=== PATIENT | male | born 1985 | race Caucasian/White ===

== ENCOUNTER 2021-04-16 12:45 | Emergency (ER) | payer OTHER, BC, SELFPAY ==
--- NOTE | ~2021-04-16 | XR_ITS ---
EXAMINATION: XR finger 3rd LT min 2V EXAM DATE: 04/16/2021 13:24 INDICATION: Crush injury, laceration. TECHNIQUE: Left 3rd finger frontal, lateral and oblique projections obtained and reviewed. There i s no prior study for comparison. FINDINGS: There are no acute left 3rd finger fractures or dislocations identified. There is no subcu taneous gas. There is soft tissue swelling over the finger. There are no radiopaque foreign bodies. IMPRESSION: 1. Left 3rd finger exam without acute osseous findings. 2. Soft tissue swelling. Reviewed, dictated and finalized at location A. TEACHER
[2021-04-16 13:01] VITALS: BP 166/91; PULSE 61; RESP 18; TEMP 36.8; O2SAT 100
--- NOTE | 2021-04-16 14:19 | ED.SKABFB ---
HPI - Skin/Abscess/Foreign Bdy General Chief complaint: Skin/Abscess/Foreign Body Stated complaint: finger injury Time Seen by Provider: 04/16/21 13:09 Source: patient Mode of arrival: ambulatory Limitations: no limitations History of Present Illness HPI narrative: This is a 35 year old male that presents to the ER for laceration to the left third finger sustained just prior to arrival. Reports he was using a piece of machinery at work and his finger got caught in a pinch point. Reports the machine was immediately released. Reports lacerations and pain to the area. He is not up-to-date on tetanus. Denies decreased ROM or numbness. Related Data Allergies Allergy/AdvReac Type Severity Reaction Status Date / Time No Known Allergies Allergy Verified 04/16/21 13:22 Review of Systems Review of Systems: CONSTITUTIONAL: Denies fever SKIN: Reports laceration MUSCULOSKELETAL: Denies joint pain, or myalgia. NEUROLOGIC: Denies numbness All systems reviewed & are unremarkable except as noted in HPI and below PMFSH Past Medical History Medical History (Updated 04/16/21 @ 15:37 by Charmaine Steiner PA-C) No active medical problems Social History Social History (Updated 04/16/21 @ 14:22 by Charmaine Steiner PA-C) Substance use: never Exam Narrative: GENERAL: Well-appearing, well-nourished, and in no acute distress. HEAD: Normocephalic, atraumatic. EYES: EOMI. EXTREMITIES: Normal range of motion. No edema or obvious deformity. Normal radial pulses. Normal sensation. Left third finger dorsal surface with 1 cm linear laceration into subcutaneous tissue. Palmar surface of left third finger with 2 cm linear laceration into subcutaneous tissue SKIN: Warm, dry, no rash. NEURO: No focal deficits. Alert and oriented x3. PSYCH: Normal mood and affect Course Vital Signs Vital signs: Vital Signs Temperature 98.3 F 04/16/21 13:01 Pulse Rate 61 04/16/21 13:01 Respiratory Rate 18 04/16/21 13:01 Blood Pressure 166/91 H 04/16/21 13:01 Pulse Oximetry 100 04/16/21 13:01 Temperature 98.3 F 04/16/21 13:01 Pulse Rate 61 04/16/21 13:01 Respiratory Rate 18 04/16/21 13:01 Blood Pressure 166/91 H 04/16/21 13:01 Pulse Oximetry 100 04/16/21 13:01 Procedures Laceration Laceration 1: Date: 04/16/21 Time: 15:39 Site: hand Side (If applicable): left Size (cm): 2 Description: linear Depth: simple, single layer Local Anesthetic: lidocaine 1% Amount of anesthesia used (mL): 3 Pre-repair: wound explored (Flexor tendon is intact) and irrigated ====== Skin Level ====== Skin layer closed with: nylon Size (cm): 4-0 Number of sutures: 5 Technique: simple, interrupted ====== Subcutaneous Layer ====== ====== Muscle Layer ====== ====== Tendon Layer ====== Laceration 2: Date: 04/16/21 Time: 15:40 Site: hand Side (If applicable): left Size (cm): 1 Description: linear Depth: simple, single layer Local Anesthetic: lidocaine 1% Amount of anesthesia used (mL): 3 Pre-repair: wound explored and irrigated ====== Skin Level ====== Skin layer closed with: nylon Size (cm): 4-0 Number of sutures: 2 Technique: simple, interrupted ====== Subcutaneous Layer ====== ====== Muscle Layer ====== ====== Tendon Layer ====== MDM - Skin/Abscess/Foreign Bdy MDM Narrative Medical decision making narrative: Patient presents the emergency department for lacerations to the left third finger sustained just prior to arrival. Patient's wounds were irrigated and closed with sutures. Left third finger x-ray is without acute osseous abnormalities. Patient is neurovascularly intact. Tendons are intact in the finger. Patient was educated on wound care. He is to follow-up with primary care doctor. He was given warnings
[2021-04-16] MEDS: TETANUS,DIPHTHERIA,AC PERTUSSIS ADULT (0.5 ML) BOOSTRIX IM (15:24)
[2021-04-16 16:00] VITALS: BP 166/91; PULSE 82; RESP 16; O2SAT 100
== END 2021-04-16 16:18 | disposition home or self-care (01) ==
PROVIDERS: Emergency Provider Emergency Medicine
DX: S61.213A Laceration without foreign body of left middle finger without damage to nail, initial encounter (principal); Z23 Encounter for immunization; W31.9XXA Contact with unspecified machinery, initial encounter
CPT/HCPCS: 12002; 73140; 90471; 90715; 99283

== ENCOUNTER 2022-08-31 14:17 | Emergency (ER) | payer OTHER, SELFPAY ==
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
[2022-08-31 14:43] VITALS: BP 148/77; PULSE 65; RESP 18; TEMP 36.4; O2SAT 100
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
== END 2022-08-31 16:45 | disposition home or self-care (01) ==
PROVIDERS: Emergency Provider Family Medicine
DX: S42.022A Displaced fracture of shaft of left clavicle, initial encounter for closed fracture (principal); V18.0XXA Pedal cycle driver injured in noncollision transport accident in nontraffic accident, initial encounter
CPT/HCPCS: 73000; 99284; A4565

== ENCOUNTER 2022-09-10 01:29 | Day surgery (SDC) | payer OTHER, SELFPAY ==
[2022-09-03 10:48] VITALS: BMI 27.1
--- NOTE | 2022-09-03 10:54 | PC.NURSE ---
Report to the Outpatient Waiting Room, entrance under the green pavilion located off [facility], at time 0800 on date 09/10/22. Planned Procedure Time: 1000. Time changes happen often and if your time is changed the preop area will call you the afternoon before. - You and your visitor will be asked to self-screen and do not enter if you have any COVID symptoms. - A mask is optional within the hospital at this time. Patients may have clear liquids (water, carbonated beverages, clear teas, apple juice) until 3 hours prior to surgery with a maximum of 20 ounces. - No food from midnight until time of surgery Take the following medications with a SIP of water the morning of surgery: N/A DO NOT STOP ANY OF YOUR OTHER PRESCRIPTION MEDICATIONS PRIOR TO SURGERY EXCEPT THE FOLLOWING Medications to discontinue per physician: N/A Date to take last dose: N/A Please no make-up, nail sinhala, hairspray, perfume, deodorant, or body powder the day of surgery. No jewelry (including any body piercings) or valuables the day of surgery, leave them at home. Please take a shower or bath the night before, or the morning of, surgery with an antibacterial soap. Wear comfortable, loose fitting clothing. - Jewelry must be removed prior to entering the operating room. Rings and piercings that are not removed may be cut off. - The hospital will not accept responsibility for valuables. - Please leave all valuables, including medications, at home the day of surgery. If you are going home after surgery, a licensed steam train driver must drive you home. - NO public transportation without another adult if you receive anesthesia. - We recommend that an adult stay with you for 24 hours following discharge. - We also recommend that you do not drive, make important decision, drink alcoholic beverages, or take any drugs that were not prescribed by your health care provider for at least 24 hours after your discharge time. Follow any additional instructions given to you from your surgeon. If you or anyone in your household have experienced Covid symptoms in the past week, please notify your surgeon or the nurse liaison at the phone number below for possible testing. Telephone instructions given to OSVALDO FALL and asked if any additional questions and then verbalized understanding. Patient advised to call surgeon office or pre surgery nurse liaison [phone] if any additional questions.
[2022-09-10] VITALS (8 sets, daily range): BP systolic 113–134; BP diastolic 56–72; PULSE 50–74; RESP 12–20; TEMP 36.3–36.5; O2SAT 98–100
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
--- NOTE | 2022-09-10 07:05 | WPDHPUPDATE1 ---
History and Physical Update Update Date/Time: 09/10/22 07:05 History and Physical has been reviewed, including an updated exam of the patient. There are NO changes in the patient's condition. Risks, benefits, and alternatives have been discussed and questions answered. Patient agrees to proceed with procedure.
[2022-09-10] MEDS: ACETAMINOPHEN 500 MG TABLET 1000 MG PO (08:15)
[2022-09-10] MEDS: KETOROLAC 15 MG/ML VIAL (*BKC) IV PUSH (08:39)
--- NOTE | 2022-09-10 08:41 | P.PNAN_ITS ---
Anes - Initial Pre Proc Eval Procedure: Operation Date: 09/10/22 10:00 Proposed Procedures p Open Reduction Internal Fixation Left Clavicle - Caleb Dickerson MD Date/Time: 09/10/22 08:41 Surgeon: Caleb Dickerson MD Pre Op Diagnosis: Lt Clavicle Fx Patient Data Age: 37 Gender: M Height: 1.8 m Weight: 87.6 kg Allergies Allergy/AdvReac Type Severity Reaction Status Date / Time No Known Allergies Allergy Verified 09/10/22 08:13 Home Medications Medication Instructions Recorded Confirmed Type No Home Medications 09/03/22 09/03/22 History Patient hx anesthesia problems: none Family hx anesthesia problems: none Results Review: All pre-operative results and documents have been reviewed as part of the pre- operative evaluation. COUNT INCLUDES THE [facility] Past Medical History Medical History No active medical problems Social History Social History Smoking packs per day: 0.75 Smoking cigarettes per day: 15.0 Years smoked: 6 Smoking pack-years: 4.50 Smoking status: Former smoker Tobacco type: cigarettes Smoking end date: 05/24/14 Alcohol intake: never Substance use: never Substance use type: does not use Living arrangements: with family Spiritual care concerns: No Anes - Eval Final PreProcedure Day of Procedure 09/10/22 08:41 Patient weight: overweight Heart: regular rate and rhythm Lungs: clear to auscultation Airway: Mallampati scale class II Neurological: alert and oriented Last oral intake: >/= 8 hours ASA classification: II Emergent: no Anesthetic plan: proceed Anesthesia type and monitoring: general ETT and standard monitoring Results Review: All pre-operative results and documents have been reviewed as part of the pre- operative evaluation. Informed Consent: The patient's anesthetic plan and its attendant risks and benefits were discussed with the patient/family/POA. Questions were solicited and answers provided to the satisfaction of the patient/family/POA.
[2022-09-10] MEDS: LACTATED RINGERS 1,000 ML 30 ML IV CONT ×2 (09:22→12:27)
[2022-09-10] MEDS: ceFAZolin 2 GM/D5W 50 ML 2 GM/50 ML BAG IVPB (10:27)
[2022-09-10] MEDS: BUPIVACAINE/EPINEPHRINE 0.5% 50 ML VIAL 20 ML INFILTRATE (12:18)
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
== END 2022-09-10 14:37 | disposition home or self-care (01) ==
PROVIDERS: Visit Provider Orthopaedic Surgery
PROC: (CPT 23515; principal; 2022-09-10 10:00)
DX: S42.022A Displaced fracture of shaft of left clavicle, initial encounter for closed fracture (principal); V18.4XXA Pedal cycle driver injured in noncollision transport accident in traffic accident, initial encounter; Z87.891 Personal history of nicotine dependence
CPT/HCPCS: 23515; 99199; A9270; C1713; J0690; J1100; J1170; J1885; J2250; J2405; J2704; J3010; J7120

== ENCOUNTER → 2022-10-29 00:46 | Day surgery (SDC) | payer OTHER, SELFPAY ==
[2022-10-26 11:04] VITALS: BMI 26.9
--- NOTE | 2022-10-26 11:05 | PC.NURSE ---
Report to the Outpatient Waiting Room, entrance under the green pavilion located off [facility], at time 1000 on date 10/29/22. Planned Procedure Time: 1200. Time changes happen often and if your time is changed the preop area will call you the afternoon before. - You and your visitor will be asked to self-screen and do not enter if you have any COVID symptoms. - A mask is optional within the hospital at this time. Patients may have clear liquids (water, carbonated beverages, clear teas, apple juice) until 3 hours prior to surgery with a maximum of 20 ounces. - No food from midnight until time of surgery Take the following medications with a SIP of water the morning of surgery: NONE DO NOT STOP ANY OF YOUR OTHER PRESCRIPTION MEDICATIONS PRIOR TO SURGERY ?EXCEPT THE FOLLOWING Medications to discontinue per physician: NAPROXEN Date to take last dose: NO MORE UNTIL AFTER SURGERY Please no make-up, nail pakistani, hairspray, perfume, deodorant, or body powder the day of surgery. No jewelry (including any body piercings) or valuables the day of surgery, leave them at home. Please take a shower or bath the night before, or the morning of, surgery with an antibacterial soap. Wear comfortable, loose fitting clothing. - Jewelry must be removed prior to entering the operating room. Rings and piercings that are not removed may be cut off. - The hospital will not accept responsibility for valuables. - Please leave all valuables, including medications, at home the day of surgery. If you are going home after surgery, a licensed goat driver must drive you home. - NO public transportation without another adult if you receive anesthesia. - We recommend that an adult stay with you for 24 hours following discharge. - We also recommend that you do not drive, make important decision, drink alcoholic beverages, or take any drugs that were not prescribed by your health care provider for at least 24 hours after your discharge time. Follow any additional instructions given to you from your surgeon. If you or anyone in your household have experienced Covid symptoms in the past week, please notify your surgeon or the nurse liaison at the phone number below for possible testing. Telephone instructions given to OSVALDO FALL and asked if any additional questions and then verbalized understanding. Patient advised to call surgeon office or pre surgery nurse liaison [phone] if any additional questions.
[2022-10-29] VITALS (10 sets, daily range): BP systolic 115–141; BP diastolic 56–87; PULSE 45–65; RESP 10–16; TEMP 36.1–36.2; O2SAT 97–100
--- NOTE | ~2022-10-29 | XR_ITS ---
EXAMINATION: XR surgery orthopedic DATE: 10/29/2022 14:29 INDICATION: Left clavicle fracture. TECHNIQUE: 2 intraoperative fluoroscopic views of the chest were obtained. I was not present. Fluoros copy exposure time was 6 seconds. COMPARISON: Left clavicle radiograph 10/23/2022 FINDINGS: There is a transverse fracture involving middle third of left clavicle in near-anatomic ali gnment. There is internal fixation of left clavicle with 2 plates with screws. IMPRESSION: 1. Left clavicle fracture status post open reduction internal fixation. Reviewed, dictated and finalized at location A.
--- NOTE | 2022-10-29 08:38 | WPDHPUPDATE1 ---
History and Physical Update Update Date/Time: 10/29/22 08:38 History and Physical has been reviewed, including an updated exam of the patient. There are NO changes in the patient's condition. Risks, benefits, and alternatives have been discussed and questions answered. Patient agrees to proceed with procedure.
--- NOTE | 2022-10-29 10:56 | SUR.PREOP ---
pt states has incentive spirometer from previous procedure and knows how to use
[2022-10-29] MEDS: ACETAMINOPHEN 500 MG TABLET 1000 MG PO (11:04)
[2022-10-29] MEDS: LACTATED RINGERS 1,000 ML 30 ML IV CONT ×2 (11:21→14:51)
[2022-10-29] MEDS: KETOROLAC 15 MG/ML VIAL (*BKC) IV PUSH (11:24)
--- NOTE | 2022-10-29 12:25 | P.PNAN_ITS ---
Anes - Initial Pre Proc Eval Procedure: Operation Date: 10/29/22 12:00 Proposed Procedures p Open Reduction Internal Fixation of Left Clavicle Fracture - Caleb Dickerson MD Date/Time: 10/29/22 12:25 Surgeon: Caleb Dickerson MD Pre Op Diagnosis: left clavicle fracture Patient Data Age: 37 Gender: M Height: 1.8 m Weight: 86.8 kg Last Vital Signs Temp 36.2 C L 10/29/22 10:57 Pulse 65 10/29/22 10:57 Resp 16 10/29/22 10:57 BP 132/75 10/29/22 10:57 Pulse Ox 100 10/29/22 10:57 O2 Del Method Room Air 10/29/22 10:57 Allergies Allergy/AdvReac Type Severity Reaction Status Date / Time No Known Allergies Allergy Verified 10/29/22 11:00 Home Medications Medication Instructions Recorded Confirmed Type naproxen 500 mg tablet 500 mg PO BID 10/26/22 10/29/22 History Patient hx anesthesia problems: none Family hx anesthesia problems: none Results Review: All pre-operative results and documents have been reviewed as part of the pre- operative evaluation. [facility] Past Medical History Medical History Encounter for postoperative care No active medical problems Painful orthopaedic hardware Social History Social History Smoking packs per day: 0.75 Smoking cigarettes per day: 15.0 Years smoked: 6 Smoking pack-years: 4.50 Smoking status: Former smoker Tobacco type: cigarettes Smoking end date: 05/24/14 Alcohol intake: never Substance use: never Substance use type: does not use Living arrangements: with family Spiritual care concerns: No Anes - Eval Final PreProcedure Day of Procedure 10/29/22 12:25 Patient weight: overweight Heart: regular rate and rhythm Lungs: clear to auscultation Airway: Mallampati scale class II Neurological: alert and oriented Last oral intake: >/= 8 hours ASA classification: II Emergent: no Anesthetic plan: proceed Anesthesia type and monitoring: general LMA and standard monitoring Results Review: All pre-operative results and documents have been reviewed as part of the pre- operative evaluation. Informed Consent: The patient's anesthetic plan and its attendant risks and benefits were discussed with the patient/family/POA. Questions were solicited and answers provided to the satisfaction of the patient/family/POA.
[2022-10-29] MEDS: ceFAZolin 2 GM/D5W 50 ML 2 GM/50 ML BAG IVPB (12:48)
[2022-10-29] MEDS: BUPIVACAINE/EPINEPHRINE 0.5% 50 ML VIAL INFILTRATE (13:46)
--- NOTE | 2022-10-29 15:29 | P.OP_ITS ---
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 He underwent open reduction internal fixation 6 weeks ago. He developed a fracture of the hardware that was placed now has pain and swelling at the incision site with prominence of the hardware. Presents for removal of hardware and Re fixation clavicle fracture. Findings fractured 3.5 mm reconstruction plate overlying the fracture site displacement of fracture. Description of Procedure Patient identified in the preoperative holding.? Informed consent given.? Operative extremity marked.? Patient received intravenous antibiotics.? Patient brought to the operating room where underwent general anesthetic by anesthesia team.? Positioned? Beach chair on operating room table.? Care was taken to secure the head neck and position the body with padding for the bony prominences.? Time-out performed confirming the patient, site of the surgery and the plan.? Shoulder then prepped and draped in usual sterile surgical fashion using a ChloraPrep skin solution.? Previous skin incision was utilized. Central area of wound breakdown was excised in elliptical fashion. Horizontal incision made along the line of the clavicle over the dorsal aspect with a 10 blade knife.? This was done after infiltration with 0.5% Marcaine with epinephrine.? Bleeding points coagulated.? Sensory elements identified and protected.? Fascia incised in line with skin incision. This alive visualization of the hardware which was present. Screws were removed with a screwdriver and broken plate and screws passed off. Screw holes debrided with curette. Thorough irrigation with solution done. ? Fracture was thejn reduced and clamped.?? Dorsal neutralization plate then applied and fixed with the 3.5 mm bicortical screws. Secondary anterior plate applied. 2.7 mm plate with 5 screws. Bone graft had been prepared on the back table and placed into the fracture site prior to the anterior plate fixation.? Image intensification brought in and confirmed reduction of the fracture and the placement of the hardware as well as the length of the dorsal to caudal screws through the clavicle.? Wound thoroughly irrigated with antibiotic solution.? Fascia repaired with 0 Vicryl interrupted suture.? Subcutaneous tissue repaired with 3 0 Monocryl interrupted suture and skin repaired with 3 Monocryl subcuticular running suture. Glue placed over skin.? Sterile dressing applied.? Patient awoke from anesthesia, extubated and taken to the recovery room in stable condition.? All sponge needle and instrument counts correct at the end of the case. Implants Arthrex 3.5 mm clavicle plate with 3.5 mm screws, 2.7 mm anterior clavicle plate with 2.7 mm screws. Allograft cortical bone and mesenchymal stem cell graft Estimated Blood Loss -10.0 Drains No Packing No Pathology None sent Complications None Condition Stable Disposition PACU [facility] Billing Surgery - Charge Forward: Surgery Billing ([id number], [id number])
[2022-10-29] MEDS: oxyCODONE HCL (*CRX) 5 MG TAB IR PO (16:10)
--- NOTE | 2022-10-29 17:36 | SUR.PHASEII ---
1715: Patient requested a sturdier sling. Dr. Dickerson notified. Dr. Dickerson gave instructions for a shoulder immobilizer to be placed. patient dressed and dc packet reviewed. Iv out with catheter intact. Ready for discharge. Awaiting shoulder immobilizer from [employer] prior to dc.
== END | disposition home or self-care (01) ==
PROVIDERS: Visit Provider Orthopaedic Surgery
PROC: (CPT 23515; principal; 2022-10-29 12:00)
DX: T84.218A Breakdown (mechanical) of internal fixation device of other bones, initial encounter (principal); T84.84XA Pain due to internal orthopedic prosthetic devices, implants and grafts, initial encounter; M25.512 Pain in left shoulder; Y83.8 Other surgical procedures as the cause of abnormal reaction of the patient, or of later complication, without mention of misadventure at the time of the procedure; S42.022G Displaced fracture of shaft of left clavicle, subsequent encounter for fracture with delayed healing; V19.9XXD Pedal cyclist (driver) (passenger) injured in unspecified traffic accident, subsequent encounter; Z87.891 Personal history of nicotine dependence
CPT/HCPCS: 23515; 99199; A9270; C1713; J0690; J1100; J1170; J1885; J2250; J2405; J2704; J2710; J3010; J7120

== ENCOUNTER 2023-01-18 08:01 | Outpatient (CLI) | payer OTHER, SELFPAY ==
--- NOTE | ~2023-01-18 | CT_ITS ---
EXAMINATION: CT shoulder LT wo con DATE: 01/18/2023 08:32 INDICATION: Clavicle fracture TECHNIQUE: High resolution computed tomography (CT) of the left shoulder was performed without intrav enous contrast. Additional sagittal and coronal reconstructions were performed. The dose-length produ ct was 594.47 mGy-cm. COMPARISON: Radiographs dated between 8 cm and 10/05/2022 FINDINGS: Mid diaphyseal fracture of the left clavicle which is fixed with a pair of plate and screws, one affi xed along the cephalad margin and the second along the anterior margin. There has been some interval healing along the fracture when compared with the initial radiograph dated 11/04/2022. There is howeve r still some discernible lucency along the fracture plane which appears likely to still remain ununit ed. Alignment remains essentially anatomic. Mild glenohumeral osteoarthritis with small marginal oste ophytes along the anteroinferior humeral head. Acromioclavicular joint space is normal. Bone island a t the glenoid. Soft tissues are unremarkable. Visualized portions of the left lung are clear. IMPRESSION: 1. Healing but likely still ununited internally fixed mid diaphyseal fracture of the left clavicle wh ich remains in essentially anatomic alignment. Reviewed, dictated and finalized at location A. IMPRESSION: 1. Healing but likely still ununited internally fixed mid diaphyseal fracture o f the left clavicle which remains in essentially anatomic alignment.
== END 2023-01-18 08:02 | disposition home or self-care (01) ==
LOC: ANHIMG 08:13
PROVIDERS: Visit Provider Orthopaedic Surgery
DX: S42.002D Fracture of unspecified part of left clavicle, subsequent encounter for fracture with routine healing (principal); X58.XXXD Exposure to other specified factors, subsequent encounter
CPT/HCPCS: 73200

== ENCOUNTER 2023-10-29 15:01 | Emergency (ER) | payer OTHER, SELFPAY ==
[2023-10-29] VITALS (31 sets, daily range): BP systolic 111–162; BP diastolic 53–86; PULSE 87–113; RESP 9–27; TEMP 37.3–40; O2SAT 96–100
--- NOTE | ~2023-10-29 | CT_ITS ---
EXAMINATION: CT forearm RT w con DATE: 10/29/2023 17:35 INDICATION: Right forearm osteomyelitis. TECHNIQUE: Computed tomography (CT) of the right forearm was performed with 100 mL Omnipaque 350 intr avenous contrast. Automated exposure control and iterative reconstruction technique were employed. Th e dose-length product was 718.99 mGy-cm. COMPARISON: None FINDINGS: There is a nondisplaced oblique fracture of diaphysis of radius with internal fixation with plate and screws. Callus formation is noted. There is a nondisplaced oblique fracture of diaphysis o f ulna with internal fixation with plate and screws. Callus formation is noted. There is a healed non displaced fracture of radial head. There is mild elbow joint osteoarthritis. No elbow joint effusion. IMPRESSION: 1. Healing oblique fractures of radial and ulnar diaphyses with internal fixation. 2. No evidence of osteomyelitis. Reviewed, dictated and finalized at location A. IMPRESSION: 1. Healing oblique fractures of radial and ulnar diaphyses with internal fixati on. 2. No evidence of osteomyelitis.
--- NOTE | ~2023-10-29 | XR_ITS ---
XR chest 2V Ordering provider: Orlando Alexander MD History: 38 years Male with . FEVER, CENTRAL LINE PLACEMENT CONFIRMATION . Comparison: None. FINDINGS: MEDIASTINUM: The cardiac silhouette is not enlarged. Right Central line is seen with the tip overlyin g the superior vena cava. LUNGS: No infiltrates, effusions or pneumothorax. OTHER: No free air under the diaphragm. Postoperative changes in the left clavicle. IMPRESSION: No acute cardiopulmonary pathology. Reviewed, dictated and finalized at location A.
[2023-10-29 17:00] LABS: Basophils Percent Auto 0.2 % (0.2-1.2); Eosinophils Absolute Auto 1.3 K/mm3 (0-0.3); Eosinophils Percent Auto 8.1 % (0-4.4); Hematocrit 43.3 % (42.0-52.0); Immature Granulocyte Absolute 0.14 K/mm3 (0.00-0.031); Immature Granulocyte Percent A 0.8 % (0-0.5); Lymphocytes Absolute Auto 1.63 K/mm3 (0.9-3.2); Lymphocytes Percent Auto 9.9 % (18.3-44.2); Mean Corpuscular HGB Conc 34.6 g/dl (32-36); Mean Corpuscular Hemoglobin 28.4 pg (26-34); Mean Corpuscular Volume 81.9 fl (80-100); Mean Platelet Volume 9.1 fl (7.4-10.4); Monocytes Absolute Auto 1.1 K/mm3 (0.1-0.6); Monocytes Percent Auto 6.4 % (2.6-8.5); Neutrophils Absolute Auto 12.3 K/mm3 (1.3-6.7); Neutrophils Percent Auto 74.6 % (45.5-73.1); Platelet Count Result 217 k/mm3 (150-375); Red Blood Count 5.29 M/mm3 (4.6-6.20); Red Cell Distribution Width 12.2 % (11.5-14.5); White Blood Count 16.5 K/mm3 (4.5-10.0)
[2023-10-29 17:11] LABS: Lactic Acid Reflex 3.4 mmol/L (0.7-2.0)
--- NOTE | 2023-10-29 17:15 | ECG_ITS ---
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 Measurements Intervals [place] Rate: 95 P: 50 MO: 129 QRS: 40 QRSD: 92 T: 27 QT: 370 QTc: 467 Interpretive Statements SINUS RHYTHM POSSIBLE RIGHT VENTRICULAR CONDUCTION DELAY [RSR (QR) IN V1/V2] NONSPECIFIC T-WAVE ABNORMALITY BORDERLINE ECG No previous ECG available for comparison Electronically Signed On 10-30-2023 08:06:07 CDT by Salvador Hunt M.D.
--- NOTE | 2023-10-29 17:15 | ED.FEVER ---
HPI - Fever General Chief Complaint: Fever <ELLEN Brown Last Filed: 10/30/23 00:39> Stated Complaint: fever, rash <ELLEN Brown Last Filed: 10/30/23 00:39> Time Seen by Provider: 10/29/23 16:07 <ELLEN Brown Last Filed: 10/30/23 00:39> Source: patient <ELLEN Brown Last Filed: 10/30/23 00:39> Mode of arrival: ambulatory <ELLEN Brown Last Filed: 10/30/23 00:39> Limitations: no limitations <ELLEN Brown Last Filed: 10/30/23 00:39> History of Present Illness HPI Narrative: This is a 38-year-old male with recent PMH of osteomyelitis of the right radius who presents to the ED for chief complaint of fevers, chills and aches for the past 24 hours. patient states that in January of 2023 he had a right radius and ulna fracture. He had delayed healing ended up getting osteomyelitis to the right radius. He follows at [facility] with Orthopedics and Infectious Disease. He has been administering IV antibiotics through a PICC line to his right upper extremity. History of blood clot to the left upper extremity from PICC line in the past. Currently on Xarelto daily. Patient reports that he was recently switched over from vancomycin after having an allergic reaction. They started ampicillin through the patient's PICC line on Wednesday. Since then he has developed diffuse hives and itching. He states he is also starting to feel more sick. He had several episodes of vomiting today. Endorses T-max of 103? at home. Denies chest pain, shortness of breath, cough, urinary symptoms, abdominal pain. Patient is relatively frustrated with his care at the other facility and is requesting 2nd opinion today. <ELLEN Brown Last Filed: 10/30/23 00:39> Related Data Home Medications: Home Medications Medication Instructions Recorded Confirmed naproxen 500 mg tablet 500 mg PO BID 10/26/22 03/03/23 <ELLEN Brown Last Filed: 10/30/23 00:39> Allergies/Adverse Reactions: Allergies Allergy/AdvReac Type Severity Reaction Status Date / Time vancomycin Allergy Other Verified 10/29/23 20:12 <Nikita Sunshine PA-C - Last Filed: 10/30/23 00:39> Review of Systems Review of Systems: All systems as dictated in HPI <Nikita Sunshine PA-C - Last Filed: 10/30/23 00:39> [facility] Past Medical History Medical History: Medical History Encounter for postoperative care No active medical problems Painful orthopaedic hardware <Nikita Sunshine PA-C - Last Filed: 10/30/23 00:39> Social History Social History: Social History Smoking packs per day: 0.75 Smoking cigarettes per day: 15.0 Years smoked: 6 Smoking pack-years: 4.50 Smoking status: Former smoker Tobacco type: cigarettes Smoking end date: 05/24/14 Alcohol intake: never Substance use: never Substance use type: does not use Living arrangements: with family Spiritual care concerns: No <Nikita Sunshine PA-C - Last Filed: 10/30/23 00:39> Exam Narrative: GENERAL: appears ill. Diaphoretic. Conversational HEAD: Normocephalic, atraumatic. EYES: PERRLA and EOMI. ENT: Nares clear, no rhinorrhea or epistaxis. Mucous membranes moist. Oropharynx without tonsillar hypertrophy exudate or other lesions. NECK: Supple. No adenopathy or masses. CHEST: No respiratory distress. Clear to auscultation. No wheezes rales or rhonchi . PICC line in the right chest wall. HEART: Regular rate and rhythm. No murmur heard. Normal peripheral pulses. ABDOMEN: Soft, nontender, nondistended, normal active bowel sounds. MSK: Normal range of motion. No edema. no tenderness throughout the right upper extremity. SKIN: maculopapular rash diffusely throughout the torso, back and upper extremities, involving the palms of the hands. also present to the bilater
[2023-10-29 17:17] LABS: Alkaline Phosphatase 76 U/L (38-126); Anion Gap 8 mmol/L (4-12); Aspartate Amino Transferase 33 U/L (17-59); Bilirubin,Total 0.8 mg/dL (0.2-1.3); Blood Urea Nitrogen 13 mg/dL (9-20); Calcium 8.8 mg/dL (8.4-10.2); Carbon Dioxide 21 mmol/L (22-30); Chloride 98 mmol/L (98-107); Estimated CRCL calculation 115 ml/min; Estimated Glomerular Filt Rate > 60; Glucose 132 mg/dL (65-110); Potassium 4.2 mmol/L (3.4-5.0); Sodium 127 mmol/L (137-145)
[2023-10-29 17:24] LABS: Alanine Aminotransferase 49 U/L (6-50)
[2023-10-29] MEDS: SODIUM CHLORIDE 0.9% IV 2,400 ML/1,000 ML BAG 999 ML IV CONT ×2 (17:40→20:18)
[2023-10-29 18:17] LABS: CRP 6.2 mg/dL (<1.0); Lipase 55 U/L (23-300)
[2023-10-29] MEDS: ACETAMINOPHEN 500 MG TABLET 1000 MG PO (18:48)
[2023-10-29] MEDS: ONDANSETRON INJ 4 MG/2 ML VIAL IV PUSH (18:49)
--- NOTE | 2023-10-29 19:21 | PC.NURSE ---
Report received from JERMAINE Villalobos. Assumed care of patient at this time.
[2023-10-29 19:29] LABS: INR 1.4; Prothrombin Time 17.8 Seconds (11.1-14.7)
[2023-10-29 19:30] LABS: Partial Thromboplastin Time 38.5 Seconds (22.3-36.8)
[2023-10-29 19:57] LABS: Reflex Lactic Acid Yes or No Add Lactic
[2023-10-29] MEDS: CEFEPIME 2 GM/NS 50 ML 2 GM/50 ML BAG IVPB (20:06)
[2023-10-29 20:14] LABS: Troponin I < 0.012 ng/mL (0.000-0.034)
[2023-10-29 20:22] LABS: Lactic Acid 1.3 mmol/L (0.7-2.0)
--- NOTE | 2023-10-29 20:23 | PC.NURSE ---
A total of 2400mls of IV fluids infused. MAR reflects 3000, unable correct MAR to reflect correct infusion amount due to previous RN scanned fluids. Patient received fluid bolus of 2400 mls, tolerated well.
[2023-10-29 20:48] LABS: Erythrocyte Sedimentation Rate 4 mm/hr (0-20)
[2023-10-29 21:02] LABS: Appearance Urine Clear (Clear); Bilirubin Urine Negative (Negative); Blood Urine Negative (Negative); Color Urine Yellow (Yellow); Glucose Urine UA Negative (Negative); Ketones Urine Negative (Negative); Leukocyte Esterase Ur Negative LEU/UL (Negative); Nitrate Urine Negative (Negative); Protein Urine Negative (Negative); Urobilinogen Urine 0.2 mg/dL (<2.0)
[2023-10-29] MEDS: CLINDAMYCIN 450 MG in DEXTROSE 5% IN WATER 50 ML 106 MG IVPB (21:18)
[2023-10-29 21:33] LABS: Add Urine Microscopic? NO
[2023-10-29] MEDS: SODIUM CHLORIDE 0.9% IV 1,000 ML 125 ML IV CONT (22:03)
--- NOTE | 2023-10-29 22:19 | PC.NURSE ---
[id number] Марина from [facility] calls to give room info and admittance to [facility] on [address]. She states patient is going to room 6120 and number to call report to [phone] with admitting doctor . [id number] Report called to JERMAINE Pierre at [facility].
--- NOTE | 2023-10-29 23:57 | PC.NURSE ---
ERP notified of patients temp, orders being placed.
[2023-10-29] MEDS: ACETAMINOPHEN 325 MG TABLET 650 MG PO (23:59)
[2023-10-30 00:10] VITALS: BP 129/71; PULSE 101; RESP 20; TEMP 39.4; O2SAT 99
== END 2023-10-30 00:15 | disposition short-term general hospital (02) ==
PROVIDERS: Emergency Medicine; Emergency Provider Physician Assistant
DX: R50.9 Fever, unspecified (principal); A41.9 Sepsis, unspecified organism; Z86.718 Personal history of other venous thrombosis and embolism; Z79.01 Long term (current) use of anticoagulants
CPT/HCPCS: 36415; 71046; 73201; 80053; 81003; 83605; 83690; 84484; 85025; 85610; 85652; 85730; 86140; 87040; 93005; 96361; 96365; 96367; 96375; 99285; A9270; J0692; J2405; J7030; Q9967